=== PATIENT | female | born 1995 | race Caucasian/White ===

== ENCOUNTER 2023-02-06 20:42 | Outpatient (REF) | payer OTHER, SELFPAY | END 2023-02-06 20:43 | disposition home or self-care (01) | LOC: LAB 20:42 | PROVIDERS: PCP Obstetrics & Gynecology; Visit Provider Obstetrics & Gynecology | DX: Z34.93 Encounter for supervision of normal pregnancy, unspecified, third trimester (principal) | CPT/HCPCS: 87081 ==

== ENCOUNTER 2023-02-22 04:54 | Inpatient (IN) | payer OTHER, SELFPAY ==
[2023-02-22] VITALS (27 sets, daily range): BP systolic 99–116; BP diastolic 52–73; PULSE 78–112; RESP 14–18; TEMP 36.5–36.9
[2023-02-22 05:48] LABS: Hematocrit 29.5 % (36.0-48.0); Hemoglobin 9.5 g/dL (12.0-16.0); Mean Corpuscular HGB Conc 32.2 g/dL (29.9-35.2); Mean Corpuscular Hemoglobin 26.7 pg (26.7-34.0); Mean Corpuscular Volume 82.9 fL (81.0-99.0); Platelet Count 201 10^3/uL (150-450); Red Blood Count 3.56 10^6/uL (4.20-5.40); Red Cell Distribution Width 14.8 % (11.0-15.0); White Blood Count 11.3 10^3/uL (4.0-11.0)
[2023-02-22 05:54] LABS: Amphetamine Screen Urine NEGATIVE (NEGATIVE); Barbiturates Screen Urine NEGATIVE (NEGATIVE); Benzodiazepines Screen Urine NEGATIVE (NEGATIVE); Buprenorphine Screen Urine NEGATIVE (NEGATIVE); Cannabinoid Screen Urine NEGATIVE (NEGATIVE); Cocaine Screen Urine NEGATIVE (NEGATIVE); Methadone Screen Urine NEGATIVE (NEGATIVE); Methamphetamines Screen Urine NEGATIVE (NEGATIVE); Opiate Screen Urine NEGATIVE (NEGATIVE); Oxycodone Screen Urine NEGATIVE (NEGATIVE); Phencyclidine Screen Urine NEGATIVE (NEGATIVE); Tricyclic Antidepressant Urine NEGATIVE (NEGATIVE)
[2023-02-22] MEDS: 0.9 % SODIUM CHLORIDE 1,000 ML 1000 ML IV (06:34)
[2023-02-22] MEDS: OXYTOCIN 10 UNIT in 0.9 % SODIUM CHLORIDE 500 ML 6.012 UNIT IV (06:37)
[2023-02-22] MEDS: 0.9 % SODIUM CHLORIDE 1,000 ML 125 ML IV (13:20)
--- NOTE | 2023-02-22 16:34 | PM.OBPRCVD ---
Procedure Intrapartal events: None Induction method: artificial rupture of membranes Delivery augmentation: rupture of membranes and pitocin Delivery monitor: external FHT and external uterine Route of delivery: Episiotomy Description: none Laceration description: none Estimated blood loss (mL): 200 Anesthesia type: None Disposition: floor
[2023-02-22] MEDS: IBUPROFEN 600 MG TABLET PO ×2 (17:37→23:35)
[2023-02-23] MEDS: IBUPROFEN 600 MG TABLET PO ×2 (05:26→20:11)
[2023-02-23 06:16] LABS: Basophils Absolute Auto 0.1 10^3/uL (0.0-0.1); Basophils Percent Auto 0.3 % (0.2-2.0); Eosinophils Absolute Auto 0.1 10^3/uL (0.0-0.7); Eosinophils Percent Auto 0.4 % (0.9-7.0); Hematocrit 25.6 % (36.0-48.0); Hemoglobin 8.2 g/dL (12.0-16.0); Immature Granulocytes Abs Auto 0.14 10^3/uL (0.00-0.03); Immature Granulocytes Pct Auto 0.9 % (0.0-0.5); Lymphocytes Absolute Auto 2.2 10^3/uL (1.2-3.8); Lymphocytes Percent Auto 13.8 % (20.5-60.0); Mean Corpuscular Hemoglobin 27.2 pg (26.7-34.0); Mean Platelet Volume 11.5 fL (9.5-13.5); Monocytes Absolute Auto 1.1 10^3/uL (0.3-0.8); Monocytes Percent Auto 7.2 % (1.7-12.0); Neutrophils Absolute Auto 12.1 10^3/uL (1.4-6.5); Neutrophils Percent Auto 77.4 % (43.0-75.0); Platelet Count 202 10^3/uL (150-450); Red Blood Count 3.01 10^6/uL (4.20-5.40); Red Cell Distribution Width 14.7 % (11.0-15.0); White Blood Count 15.7 10^3/uL (4.0-11.0)
--- NOTE | 2023-02-23 07:17 | W.PC.ACHO ---
Registration Status: ADM IN Primary Language: Spanish Preferred Language: Spanish Active Medications 0716- Report given to Yeyo Marroquin RN Generic Name Dose Route Start Last Admin Trade Name Freq PRN Reason Stop Dose Admin Acetaminophen 650 mg 02/22/23 16:32 Acetaminophen 325 Mg Tablet PO Q6H PRN Mild Pain Al Hydroxide/Mg Hydroxide 2,400 mg 02/22/23 16:32 Magnesium Hydroxide 2,400 Mg/10 Ml Oral.Susp PO Q6H PRN Dyspepsia Benzocaine/Menthol 1 applic 02/22/23 16:32 Benzocaine/Menthol 85 Gram Bottle TOPICAL ONCE PRN Pain Carboprost Tromethamine 250 mcg 02/22/23 04:57 Carboprost Tromethamine 250 Mcg/Ml 1 Ml Vial IM Q15M PRN Bleeding Docusate Sodium 100 mg 02/23/23 09:00 Docusate Sodium 100 Mg Capsule PO BID KING Sodium Chloride 1,000 mls @ 125 mls/hr 02/22/23 05:00 02/22/23 13:20 Sodium Chloride 0.9% 1,000 Ml IV 125 mls/hr .Q8H KING Administration Oxytocin 10 unit/ Sodium 501 mls @ 6.012 mls/hr 02/22/23 05:00 02/22/23 06:37 Chloride IV 2 milliunit/min Q24H KING 6.012 mls/hr Administration 2 MILLIUNIT/MIN Ibuprofen 600 mg 02/22/23 16:32 02/23/23 05:26 Ibuprofen 600 Mg Tablet PO 600 mg Q6H PRN Administration Moderate Pain Lidocaine 5 ml 02/22/23 04:57 Lidocaine Viscous 2% 15 Ml Topical Solution TOPICAL DIRECTED PRN Pain Lidocaine 1 ml 02/22/23 04:57 Lidocaine Hcl 1% 200 Mg/20 Ml Mdv INJ DIRECTED PRN Pain Methylergonovine Maleate 0.2 mg 02/22/23 04:57 Methylergonovine Maleate 0.2 Mg Tablet PO Q4H PRN Uterine Contractility/Contract Methylergonovine Maleate 0.2 mg 02/22/23 04:57 Methylergonovine Maleate 0.2 Mg/Ml Ampule IM ONCE PRN Uterine Contractility/Contract Misoprostol 600 mcg 02/22/23 04:57 Misoprostol 100 Mcg Tablet PO ONCE PRN Uterine Bleeding Misoprostol 800 mcg 02/22/23 04:57 Misoprostol 100 Mcg Tablet SL ONCE PRN Uterine Bleeding Misoprostol 1,000 mcg 02/22/23 04:57 Misoprostol 100 Mcg Tablet [place] ONCE PRN Uterine Bleeding Ondansetron HCl 4 mg 02/22/23 04:57 Ondansetron Pf 4 Mg/2 Ml Vial IV Q6H PRN Nausea And Vomiting Ondansetron HCl 4 mg 02/22/23 04:57 Ondansetron 4 Mg Rapdis Tablet SL Q6H PRN Nausea And Vomiting Oxytocin 10 unit 02/22/23 04:57 Oxytocin 100 Unit/10 Ml Vial IM ONCE PRN Uterine Bleeding Senna 17.2 mg 02/22/23 20:00 Sennosides 8.6 Mg Tablet PO QHS PRN Constipation Simethicone 80 mg 02/22/23 16:32 Simethicone 80 Mg Tab.Chew PO QID PRN Abdominal Distention Temazepam 15 mg 02/22/23 20:00 Temazepam 15 Mg Capsule PO BEDTIME PRN Sleep Witch Tayler/Glycerin 1 each 02/22/23 16:32 Glycerin/Witch Tayler 1 Each Jar TOPICAL ONCE PRN Pain Diet Category Date Time Status Regular Consistency Diet Diet 02/22/23 Dinner Active Respiratory Lung sounds [Bilateral clear Throughout] Lung sounds [Bilateral clear Throughout] Oxygen Delivery Method Room Air Oxygen Delivery Method Room Air Oxygen Delivery Method Room Air Oxygen Delivery Method Room Air Cardiology Heart Sounds Strong,Regular Heart Sounds Strong,Regular Bowels Bowel Pattern No Bowel Movement Bowel Pattern No Bowel Movement Renal Bladder Pattern Continent Bladder Pattern Continent
--- NOTE | 2023-02-23 07:48 | PM.OBPN ---
OB - PN: Subj Subjective Patient comments: no complaints and pain well controlled Eleele status: doing well Exam Constitutional Vital Signs, click to edit/add: Last Vital Signs Temp 97.7 F 02/22/23 23:30 Pulse 102 H 02/22/23 23:35 Resp 16 02/22/23 23:30 BP 99/54 L 02/22/23 23:35 O2 Del Method Room Air 02/22/23 23:30 Documenting provider has reviewed patient's vital signs: yes Common normals: no apparent distress Respiratory Common normals: normal respiratory effort and clear to auscultation bilaterally Cardio Common normals: regular rate and regular rhythm GI Common normals: Normal to inspection, nondistended, normoactive bowel sounds present Extremity Common normals: normal to inspection, no clubbing, cyanosis or edema and no calf tenderness Results Labs Labs: Short CBC 02/23/23 Range/Units 05:45 WBC 15.7 H (4.0-11.0) 10^3/uL Hgb 8.2 L (12.0-16.0) g/dL Hct 25.6 L (36.0-48.0) % Plt Count 202 (150-450) 10^3/uL OB - PN: A/P Plan - Vaginal Delivery day: 1 Plan: routine care Time Spent with Patient Time: Total time spent is greater than 50% in coordination of care (as documented) at patient's floor/unit and/or counseling patient: Total time spent with greater than 50% in coordination of care (as documented) at patient's floor/unit and/or counseling patient: less than 15 minutes
[2023-02-23 08:18] VITALS: BP 107/70; PULSE 96
[2023-02-23 08:30] VITALS: PULSE 96; RESP 16; TEMP 36.3
[2023-02-23] MEDS: DOCUSATE SODIUM 100 MG CAPSULE PO ×2 (11:38→20:12)
[2023-02-23 17:22] VITALS: BP 101/55; PULSE 81
[2023-02-23 17:26] VITALS: RESP 16; TEMP 36.2
[2023-02-23 23:35] VITALS: BP 101/58; PULSE 80; RESP 14; TEMP 36.8
[2023-02-23 23:38] VITALS: BP 101/58; PULSE 80
[2023-02-24] MEDS: IBUPROFEN 600 MG TABLET PO ×2 (02:12→08:16)
--- NOTE | 2023-02-24 07:18 | W.PC.ACHO ---
Registration Status: ADM IN Primary Language: Israeli Preferred Language: Israeli Active Medications 704- Report given to Ismael Dennis RN Generic Name Dose Route Start Last Admin Trade Name Shaheedq PRN Reason Stop Dose Admin Acetaminophen 650 mg 02/22/23 16:32 Acetaminophen 325 Mg Tablet PO Q6H PRN Mild Pain Al Hydroxide/Mg Hydroxide 2,400 mg 02/22/23 16:32 Magnesium Hydroxide 2,400 Mg/10 Ml Oral.Susp PO Q6H PRN Dyspepsia Benzocaine/Menthol 1 applic 02/22/23 16:32 Benzocaine/Menthol 85 Gram Bottle TOPICAL ONCE PRN Pain Docusate Sodium 100 mg 02/23/23 09:00 02/23/23 20:12 Docusate Sodium 100 Mg Capsule PO 100 mg BID KING Administration Sodium Chloride 1,000 mls @ 125 mls/hr 02/22/23 05:00 02/22/23 13:20 Sodium Chloride 0.9% 1,000 Ml IV 125 mls/hr .Q8H KING Administration Ibuprofen 600 mg 02/22/23 16:32 02/24/23 02:12 Ibuprofen 600 Mg Tablet PO 600 mg Q6H PRN Administration Moderate Pain Ondansetron HCl 4 mg 02/22/23 04:57 Ondansetron Pf 4 Mg/2 Ml Vial IV Q6H PRN Nausea And Vomiting Ondansetron HCl 4 mg 02/22/23 04:57 Ondansetron 4 Mg Rapdis Tablet SL Q6H PRN Nausea And Vomiting Senna 17.2 mg 02/22/23 20:00 Sennosides 8.6 Mg Tablet PO QHS PRN Constipation Simethicone 80 mg 02/22/23 16:32 Simethicone 80 Mg Tab.Chew PO QID PRN Abdominal Distention Temazepam 15 mg 02/22/23 20:00 Temazepam 15 Mg Capsule PO BEDTIME PRN Sleep Witch Tayler/Glycerin 1 each 02/22/23 16:32 Glycerin/Witch Tayler 1 Each Jar TOPICAL ONCE PRN Pain Respiratory Lung sounds [Bilateral clear Throughout] Lung sounds [Bilateral clear Throughout] Lung sounds [Bilateral clear Throughout] Oxygen Delivery Method Room Air Oxygen Delivery Method Room Air Cardiology Heart Sounds Strong,Regular Heart Sounds Strong Heart Sounds Regular Bowels Bowel Pattern No Bowel Movement Renal Bladder Pattern Continent Bladder Pattern Continent Bladder Pattern Continent
[2023-02-24 08:16] VITALS: BP 104/58; PULSE 76; RESP 16; TEMP 36.8
[2023-02-24] MEDS: DOCUSATE SODIUM 100 MG CAPSULE PO (08:16)
--- NOTE | 2023-02-24 11:24 | P.DS_ITS ---
DS: Providers Provider Date of admission: 02/22/23 04:54 Primary care physician: Hao Mireles DO Admitting clinician: Hao Mireles Consults: 02/22/23 Consult to Anesthesiology Routine Consulting Provider: Rogelio Madrigal Attending physician on discharge: Inocencia Zhou Anticipated date of discharge: 02/24/23 DS: Diagnosis Discharge Diagnosis (1) Normal vaginal delivery: Plan CLINICAL EXAM NORMAL. NO PERINEAL REPAIR. BREAST FEEDING. NORMAL ELIMINATION. AMBULATING AND EATING NORMALLY. HAS GOOD HELP AT HOME. HOME GOING INSTRUCTIONS GIVEN WITH STATED UNDERSTANDING. POST APPOINTMENT TO BE SCHEDULED FOR SI X WEEKS FROM DELIVERY. BABY TO SEE PEDS WITHIN WEEK. CALL FOR PROBLEM OR CONCERN IN INTERIM OB - DS: Summary Hospital Course Time spent discussing smoking cessation with patient: 3 to 10 minutes Complications complications: none Infant Delivery method: spontaneous vaginal delivery Gender: male Discharge plan: home Status at Discharge Functional status at discharge: independent ambulation Overall status at discharge: patient is back to baseline Time Spent with Patient Time attestation: Total time spent providing and/or coordinating discharge services: Time spent: less than 30 minutes Exam Constitutional Vital Signs, click to edit/add: Last Vital Signs Temp 98.2 F 02/24/23 08:16 Pulse 76 02/24/23 08:16 Resp 16 02/24/23 08:16 BP 104/58 02/24/23 08:16 O2 Del Method Room Air 02/24/23 08:16 Common normals: no apparent distress HENMT Common normals: normocephalic and head/scalp atraumatic Eye Common normals: PERRL Pupil: accommodation reflex normal Neck & C-Spine Common normals: full ROM Respiratory Common normals: normal respiratory effort Cardio Common normals: regular rate and regular rhythm GI Common normals: Normal to inspection, nondistended, normoactive bowel sounds present Common normals: no CVA tenderness Extremity Common normals: normal to inspection and full ROM Neuro Common normals: CN's II-XII intact bilaterally Psych Common normals: mental status grossly normal Discharge Plan Discharge Disposition: Home, Self-Care Condition: Good Assessment: S/P UNCOMPLICATED VAGINAL DELIVERY IN MULTIP WITH NO PERINEAL REPAIR. . NORMAL EXAM AND VITAL SIGNS. READY FOR DISCHARGE. Discharge Medications: Continued citalopram 20 mg tablet 20 mg PO DAILY Activity Detail: WALKING ONLY FORM OF EXERCISE FOR SIX WEEKS, ONLY LIFT BABY Diet: regular diet Activity Restrictions/Additional Instructions: NO SEX FOR SIX WEEKS, NO SWIMMING FOR 4 WEEKS, MAY CLIMB STAIRS, MAY SHOWER, SPORTS BRA IF DECIDES TO STOP BREAST FEEDING, MAKE POST APPOINTMENT FOR SIX WEEKS FROM DELIVERY, BABY TO SEE SONOSCOPE OPERATOR WITHIN WEEK, GENERAL COVID AND RSV INSTRUCTIONS GIVEN Forms: Portal Instructions Follow Up Appointments: SIX WEEK POST APPOINTMENT WITH DR. MIRELES Discharge location: HOME
== END 2023-02-24 12:00 | disposition home or self-care (01) | DRG 560 ==
PROVIDERS: Admitting Provider Obstetrics & Gynecology; PCP Obstetrics & Gynecology; Visit Provider Obstetrics & Gynecology
DX: O99.354 Diseases of the nervous system complicating childbirth (principal); Z3A.39 39 weeks gestation of pregnancy; Z37.0 Single live birth; G93.0 Cerebral cysts; O99.892 Other specified diseases and conditions complicating childbirth; Q25.42 Hypoplasia of aorta; Q21.0 Ventricular septal defect; Z82.5 Family history of asthma and other chronic lower respiratory diseases; Z84.89 Family history of other specified conditions; Z79.899 Other long term (current) drug therapy
CPT/HCPCS: 36415; 59050; 59410; 80307; 85025; 85027; 86850; 86900; 86901; 96374; 96376